=== PATIENT | male | born 1950 | race Caucasian/White ===

== ENCOUNTER 2020-11-04 14:48 | Inpatient (IN) ==
[2020-11-04 15:53] LABS: Hematocrit 33.4 % (37.5-50.1); Hemoglobin 10.9 g/dL (12.9-16.9); Immature Granulocytes % 0.2 % (0-4); Lymphocytes # 0.2 K/mcL (0.6-4.6); Lymphocytes % 3.7 %; Mean Corpuscular HGB Conc 32.6 g/dL (31.6-35.5); Mean Corpuscular Hemoglobin 32.6 pg (28.0-33.3); Mean Platelet Volume 10.6 fL (9.4-12.4); Monocytes # 0.2 K/mcL (0.0-1.3); Monocytes % 4.7 %; Neutrophils # 4.2 K/mcL (1.6-8.9); Platelet Count 107 K/mcL (140-400); Red Blood Count 3.34 M/mcL (4.19-5.50); Red Cell Distribution Width 12.9 % (11.5-14.5); Segmented Neutrophils % 91.4 %; White Blood Count 4.6 K/mcL (4.3-11.1)
[2020-11-04] MEDS ORDERED: Ondansetron 4 MG/2 ML VIAL IVP ONE (16:04)
[2020-11-04] MEDS ORDERED: 0.9 % Sodium Chloride 500 ML IV ONE (16:08)
[2020-11-04 16:23] LABS: Alanine Aminotransferase 54 Units/L (7-52); Albumin/Globulin Ratio 1.3 (1.1-2.2); Alkaline Phosphatase 56 Units/L (34-104); Aspartate Amino Transferase 52 Units/L (13-39); BUN/Creatinine Ratio 22 (6-26); Bilirubin,Total 1.1 mg/dL (0.3-1.0); Blood Urea Nitrogen 30 mg/dL (8-23); Calcium 9.2 mg/dL (8.6-10.3); Carbon Dioxide 26 mEq/L (23-29); Chloride 97 mEq/L (98-107); Globulin 3.1 g/dL (2.4-3.5); Glucose 119 mg/dL (70-105); Osmolality,Calculated 281 (280-300); Platelet Estimate Decreased (Normal); Potassium 3.7 mEq/L (3.5-5.1); Sodium 132 mEq/L (136-145); Total Protein 7.1 g/dL (6.4-8.9); Troponin I 0.07 ng/mL (< 0.04); eGFR For African Americans > 60 (> 60); eGFR For Non-African Americans 51 (> 60)
[2020-11-04 16:38] LABS: Amorphous Sediment,Urine Few per hpf (None-Few); Bacteria,Urine Few per hpf (None-Few); Bilirubin,Urine Negative (Negative); Blood,Urine Large (Negative); Clarity,Urine Turbid (Clear); Color,Urine Yellow (Yellow); Glucose,Urine (UA) Normal (Normal); Ketones,Urine Negative (Negative); Leukocyte Esterase,Urine Negative (Negative); Mucus,Urine Few per lpf (None-Few); Nitrite,Urine Negative (Negative); PH,Urine 6.5 pH Units (5.0-8.0); Protein,Urine 100 mg/dL (Neg-Trace); RBC,Urine TNTC per hpf (0-3); Squamous Epithelial Cell,Urine Few per hpf (None-Few); Urobilinogen,Urine Normal (Normal)
[2020-11-04 17:22] LABS: INR 1.4; Prothrombin Time 15.2 Seconds (9.4-12.1)
[2020-11-04 17:29] LABS: Influenza A PCR Negative (Negative); Influenza B PCR Negative (Negative); Resp. Syncytial Virus PCR Negative (Negative)
[2020-11-04 17:42] LABS: SARS-CoV-2 by PCR (In House) Positive (Negative)
[2020-11-04 20:44] LABS: C-Reactive Protein 187 mg/L (Less than 10)
[2020-11-04] MEDS ORDERED: Melatonin 3 MG TABLET PO PRN (22:20)
[2020-11-04] MEDS ORDERED: Naloxone 0.4 MG/ML INJ IVP PRN (22:20)
[2020-11-04] MEDS: *HR* OxyCODONE/APAP 7.5/325 TABLET GTUBE PRN (23:23)
[2020-11-04] MEDS: Ringers Solution, Lactated 1,000 ML IVC SCH (23:36)
[2020-11-05] MEDS ORDERED: Remdesivir 200 MG in 0.9 % Sodium Chloride 100 ML IVPB ONE (00:01)
[2020-11-05] MEDS: *HR* OxyCODONE/APAP 7.5/325 TABLET GTUBE PRN (05:00)
[2020-11-05] MEDS ORDERED: *HR* Enoxaparin 80 MG/0.8 ML SYRINGE SQ SCH (06:00)
[2020-11-05 07:02] LABS: Basophils % 0.3 %; Hematocrit 30.9 % (37.5-50.1); Immature Granulocytes % 0.5 % (0-4); Immature Platelets 3.7 % (1.1-6.1); Lymphocytes # 0.2 K/mcL (0.6-4.6); Lymphocytes % 5.9 %; Mean Corpuscular HGB Conc 32.4 g/dL (31.6-35.5); Mean Corpuscular Hemoglobin 32.7 pg (28.0-33.3); Mean Platelet Volume 10.3 fL (9.4-12.4); Monocytes # 0.2 K/mcL (0.0-1.3); Monocytes % 3.9 %; Neutrophils # 3.5 K/mcL (1.6-8.9); Red Blood Count 3.06 M/mcL (4.19-5.50); Segmented Neutrophils % 89.4 %; White Blood Count 3.9 K/mcL (4.3-11.1)
[2020-11-05 07:09] LABS: Platelet Count 97 K/mcL (140-400)
[2020-11-05 07:21] LABS: Albumin 3.4 g/dL (3.5-5.7); Albumin/Globulin Ratio 1.4 (1.1-2.2); Bilirubin,Direct 0.2 mg/dL (0.0-0.2); Bilirubin,Indirect 0.6 mg/dL (0.0-1.0); Bilirubin,Total 0.8 mg/dL (0.3-1.0); Globulin 2.5 g/dL (2.4-3.5); Total Protein 5.9 g/dL (6.4-8.9)
[2020-11-05 07:22] LABS: BUN/Creatinine Ratio 22 (6-26); Blood Urea Nitrogen 28 mg/dL (8-23); Calcium 8.7 mg/dL (8.6-10.3); Carbon Dioxide 26 mEq/L (23-29); Chloride 103 mEq/L (98-107); Glucose 110 mg/dL (70-105); Osmolality,Calculated 290 (280-300); Potassium 3.7 mEq/L (3.5-5.1); Sodium 137 mEq/L (136-145); eGFR For African Americans > 60 (> 60); eGFR For Non-African Americans 56 (> 60)
[2020-11-05] MEDS ORDERED: Famotidine 20 MG TABLET PO SCH (09:00)
[2020-11-05] MEDS: Aspirin Enteric Coated 81 MG Tablet PO SCH (09:09)
[2020-11-05] MEDS: Ampicillin/Sulbactam 3,000 MG in 0.9 % Sodium Chloride Mini Bag 100 ML IVPB SCH ×4 (09:10→23:41)
[2020-11-05] MEDS: Ringers Solution, Lactated 1,000 ML IVC SCH (09:10)
[2020-11-05] MEDS: Azithromycin 500 MG in 0.9 % Sodium Chloride 250 ML IVPB SCH (09:11)
[2020-11-06] MEDS: Remdesivir 100 MG in 0.9 % Sodium Chloride 100 ML IVPB SCH (00:41)
[2020-11-06 02:27] LABS: Hemoglobin 9.8 g/dL (12.9-16.9); Mean Corpuscular HGB Conc 33.8 g/dL (31.6-35.5); Mean Corpuscular Hemoglobin 33.4 pg (28.0-33.3); Mean Platelet Volume 10.3 fL (9.4-12.4); Red Blood Count 2.93 M/mcL (4.19-5.50); Red Cell Distribution Width 12.9 % (11.5-14.5); White Blood Count 5.2 K/mcL (4.3-11.1)
[2020-11-06 02:29] LABS: Platelet Count 91 K/mcL (140-400)
[2020-11-06 02:47] LABS: BUN/Creatinine Ratio 32 (6-26); Blood Urea Nitrogen 33 mg/dL (8-23); Calcium 8.5 mg/dL (8.6-10.3); Carbon Dioxide 26 mEq/L (23-29); Chloride 107 mEq/L (98-107); Glucose 118 mg/dL (70-105); Osmolality,Calculated 296 (280-300); Potassium 3.8 mEq/L (3.5-5.1); Sodium 139 mEq/L (136-145); eGFR For African Americans > 60 (> 60); eGFR For Non-African Americans > 60 (> 60)
[2020-11-06 02:49] LABS: Albumin/Globulin Ratio 1.2 (1.1-2.2); Bilirubin,Direct 0.2 mg/dL (0.0-0.2); Bilirubin,Indirect 0.6 mg/dL (0.0-1.0); Bilirubin,Total 0.8 mg/dL (0.3-1.0); Globulin 2.5 g/dL (2.4-3.5); Total Protein 5.5 g/dL (6.4-8.9)
[2020-11-06 02:55] LABS: Neutrophils # 4.2 K/mcL (1.6-8.9); Platelet Estimate Slight Decrease (Normal); Reactive Lymphocytes Present (Not Present)
[2020-11-06] MEDS: Ampicillin/Sulbactam 3,000 MG in 0.9 % Sodium Chloride Mini Bag 100 ML IVPB SCH ×3 (05:37→17:43)
[2020-11-06] MEDS: Aspirin Enteric Coated 81 MG Tablet PO SCH (10:02)
[2020-11-06] MEDS: *HR* Enoxaparin 40 MG/0.4 ML SYRINGE SQ SCH (10:05)
[2020-11-06] MEDS: Azithromycin 200 MG/5 ML UDC GTUBE SCH (10:29)
[2020-11-06] MEDS ORDERED: Perflutren Lipid Microsphere 1.3 ML in 0.9 % Sodium Chloride 8.7 ML IVP PRN (11:59)
[2020-11-07] MEDS: Ampicillin/Sulbactam 3,000 MG in 0.9 % Sodium Chloride Mini Bag 100 ML IVPB SCH ×4 (00:48→17:53)
[2020-11-07] MEDS: Remdesivir 100 MG in 0.9 % Sodium Chloride 100 ML IVPB SCH (01:25)
[2020-11-07 02:18] LABS: Mean Platelet Volume 10.5 fL (9.4-12.4); Red Cell Distribution Width 13.2 % (11.5-14.5)
[2020-11-07 02:20] LABS: Hematocrit 31.2 % (37.5-50.1); Immature Platelets 4.4 % (1.1-6.1); Lymphocytes # 0.2 K/mcL (0.6-4.6); Mean Corpuscular HGB Conc 32.1 g/dL (31.6-35.5); Mean Corpuscular Hemoglobin 32.4 pg (28.0-33.3); Red Blood Count 3.09 M/mcL (4.19-5.50); White Blood Count 5.5 K/mcL (4.3-11.1)
[2020-11-07 02:37] LABS: Albumin 3.1 g/dL (3.5-5.7); Albumin/Globulin Ratio 1.3 (1.1-2.2); Bilirubin,Direct 0.2 mg/dL (0.0-0.2); Bilirubin,Indirect 0.6 mg/dL (0.0-1.0); Bilirubin,Total 0.8 mg/dL (0.3-1.0); Globulin 2.4 g/dL (2.4-3.5); Total Protein 5.5 g/dL (6.4-8.9)
[2020-11-07 02:39] LABS: Platelet Count 93 K/mcL (140-400)
[2020-11-07 03:28] LABS: BUN/Creatinine Ratio 38 (6-26); Blood Urea Nitrogen 41 mg/dL (8-23); Calcium 9.3 mg/dL (8.6-10.3); Carbon Dioxide 24 mEq/L (23-29); Chloride 108 mEq/L (98-107); Glucose 118 mg/dL (70-105); Osmolality,Calculated 305 (280-300); Potassium 3.7 mEq/L (3.5-5.1); Sodium 142 mEq/L (136-145); eGFR For African Americans > 60 (> 60); eGFR For Non-African Americans > 60 (> 60)
[2020-11-07 04:28] LABS: Monocytes # 0.6 K/mcL (0.0-1.3); Neutrophils # 4.7 K/mcL (1.6-8.9); Reactive Lymphocytes Present (Not Present); Toxic Granulation Present (Not Present)
[2020-11-07 04:29] LABS: Platelet Estimate Decreased (Normal)
[2020-11-07] MEDS: *HR* Enoxaparin 40 MG/0.4 ML SYRINGE SQ SCH (09:38)
[2020-11-07] MEDS: Aspirin 81 MG TAB.CHEW PO SCH (09:38)
[2020-11-07] MEDS: Azithromycin 200 MG/5 ML UDC GTUBE SCH (10:13)
[2020-11-07 12:25] LABS: Hepatitis B Surface Antigen Nonreactive (Nonreactive)
[2020-11-07 12:26] LABS: Hepatitis C Virus Antibody Nonreactive (Nonreactive)
[2020-11-07 12:29] LABS: Hepatitis A Antibody IgM Nonreactive (Nonreactive)
[2020-11-07 12:53] LABS: Hepatitis B Core IgM Nonreactive (Nonreactive)
[2020-11-08] MEDS: Remdesivir 100 MG in 0.9 % Sodium Chloride 100 ML IVPB SCH (00:18)
[2020-11-08] MEDS: Ampicillin/Sulbactam 3,000 MG in 0.9 % Sodium Chloride Mini Bag 100 ML IVPB SCH ×5 (00:19→23:46)
[2020-11-08 07:22] LABS: Immature Granulocytes % 1.1 % (0-4); Mean Corpuscular Hemoglobin 32.2 pg (28.0-33.3); Red Cell Distribution Width 13.2 % (11.5-14.5)
[2020-11-08 07:24] LABS: Basophils % 0.2 %; Hematocrit 29.6 % (37.5-50.1); Hemoglobin 9.5 g/dL (12.9-16.9); Immature Platelets 4.6 % (1.1-6.1); Lymphocytes # 0.2 K/mcL (0.6-4.6); Lymphocytes % 3.4 %; Mean Corpuscular HGB Conc 32.1 g/dL (31.6-35.5); Mean Corpuscular Volume 100.3 fL (83.0-100.0); Mean Platelet Volume 10.7 fL (9.4-12.4); Monocytes # 0.4 K/mcL (0.0-1.3); Neutrophils # 5.8 K/mcL (1.6-8.9); Red Blood Count 2.95 M/mcL (4.19-5.50); Segmented Neutrophils % 89.3 %; White Blood Count 6.5 K/mcL (4.3-11.1)
[2020-11-08 07:26] LABS: Platelet Count 93 K/mcL (140-400)
[2020-11-08 07:43] LABS: Albumin 2.9 g/dL (3.5-5.7); Albumin/Globulin Ratio 1.2 (1.1-2.2); Bilirubin,Direct 0.2 mg/dL (0.0-0.2); Bilirubin,Indirect 0.7 mg/dL (0.0-1.0); Bilirubin,Total 0.9 mg/dL (0.3-1.0); Globulin 2.5 g/dL (2.4-3.5); Total Protein 5.4 g/dL (6.4-8.9)
[2020-11-08] MEDS: Aspirin 81 MG TAB.CHEW PO SCH (10:45)
[2020-11-08] MEDS: *HR* Enoxaparin 40 MG/0.4 ML SYRINGE SQ SCH (10:47)
[2020-11-08] MEDS: Azithromycin 200 MG/5 ML UDC GTUBE SCH (10:47)
[2020-11-08 11:27] LABS: BUN/Creatinine Ratio 40 (6-26); Blood Urea Nitrogen 43 mg/dL (8-23); Calcium 8.4 mg/dL (8.6-10.3); Carbon Dioxide 24 mEq/L (23-29); Chloride 112 mEq/L (98-107); Glucose 143 mg/dL (70-105); Osmolality,Calculated 315 (280-300); Potassium 3.5 mEq/L (3.5-5.1); Sodium 146 mEq/L (136-145); eGFR For African Americans > 60 (> 60); eGFR For Non-African Americans > 60 (> 60)
[2020-11-08] MEDS: Azithromycin 500 MG in 0.9 % Sodium Chloride 250 ML IVPB SCH (15:09)
[2020-11-09] MEDS: Remdesivir 100 MG in 0.9 % Sodium Chloride 100 ML IVPB SCH (00:46)
[2020-11-09 02:15] LABS: Hematocrit 31.1 % (37.5-50.1); Hemoglobin 10.1 g/dL (12.9-16.9); Immature Granulocytes % 1.4 % (0-4); Lymphocytes # 0.2 K/mcL (0.6-4.6); Lymphocytes % 2.7 %; Mean Corpuscular HGB Conc 32.5 g/dL (31.6-35.5); Mean Corpuscular Hemoglobin 32.7 pg (28.0-33.3); Mean Corpuscular Volume 100.6 fL (83.0-100.0); Mean Platelet Volume 10.5 fL (9.4-12.4); Monocytes # 0.3 K/mcL (0.0-1.3); Monocytes % 5.3 %; Neutrophils # 5.3 K/mcL (1.6-8.9); Platelet Count 100 K/mcL (140-400); Red Blood Count 3.09 M/mcL (4.19-5.50); Red Cell Distribution Width 13.2 % (11.5-14.5); Segmented Neutrophils % 90.6 %; White Blood Count 5.8 K/mcL (4.3-11.1)
[2020-11-09 02:33] LABS: BUN/Creatinine Ratio 43 (6-26); Blood Urea Nitrogen 43 mg/dL (8-23); Calcium 8.5 mg/dL (8.6-10.3); Carbon Dioxide 24 mEq/L (23-29); Chloride 112 mEq/L (98-107); Glucose 233 mg/dL (70-105); Osmolality,Calculated 320 (280-300); Potassium 3.6 mEq/L (3.5-5.1); Sodium 146 mEq/L (136-145); eGFR For African Americans > 60 (> 60); eGFR For Non-African Americans > 60 (> 60)
[2020-11-09 02:34] LABS: Albumin/Globulin Ratio 1.1 (1.1-2.2); Bilirubin,Direct 0.3 mg/dL (0.0-0.2); Bilirubin,Indirect 0.6 mg/dL (0.0-1.0); Bilirubin,Total 0.9 mg/dL (0.3-1.0); Globulin 2.7 g/dL (2.4-3.5); Total Protein 5.7 g/dL (6.4-8.9)
[2020-11-09] MEDS: Ampicillin/Sulbactam 3,000 MG in 0.9 % Sodium Chloride Mini Bag 100 ML IVPB SCH ×4 (04:48→23:10)
[2020-11-09] MEDS: Aspirin 81 MG TAB.CHEW PO SCH (10:12)
[2020-11-09] MEDS: *HR* Enoxaparin 40 MG/0.4 ML SYRINGE SQ SCH (10:14)
[2020-11-09] MEDS: Azithromycin 200 MG/5 ML UDC GTUBE SCH (10:14)
[2020-11-09] MEDS ORDERED: Furosemide 40 MG/4 ML VIAL IVP ONE (22:57)
[2020-11-09 23:24] LABS: ABG Base Excess -1 mEq/L (-2 to 3); ABG HCO3 24 mEq/L (21-27); ABG Oxygen Saturation 88 % (95-98); ABG PCO2 38 mmHg (35-45); ABG PH 7.41 pH Units (7.32-7.45); ABG PO2 55 mmHg (85-104); ABG TCO2 25 mEq/L (20-26)
[2020-11-10] MEDS: Ampicillin/Sulbactam 3,000 MG in 0.9 % Sodium Chloride Mini Bag 100 ML IVPB SCH ×3 (06:10→21:15)
[2020-11-10 08:36] LABS: Red Blood Count 3.26 M/mcL (4.19-5.50); Red Cell Distribution Width 13.1 % (11.5-14.5)
[2020-11-10 08:38] LABS: Hemoglobin 10.7 g/dL (12.9-16.9); Immature Platelets 5.8 % (1.1-6.1); Mean Corpuscular HGB Conc 33.4 g/dL (31.6-35.5); Mean Corpuscular Hemoglobin 32.8 pg (28.0-33.3); Mean Corpuscular Volume 98.2 fL (83.0-100.0); Mean Platelet Volume 10.6 fL (9.4-12.4); Platelet Count 138 K/mcL (140-400); White Blood Count 9.4 K/mcL (4.3-11.1)
[2020-11-10 09:40] LABS: Alanine Aminotransferase 203 Units/L (7-52); Albumin 2.9 g/dL (3.5-5.7); Albumin/Globulin Ratio 1.2 (1.1-2.2); Alkaline Phosphatase 50 Units/L (34-104); Aspartate Amino Transferase 98 Units/L (13-39); BUN/Creatinine Ratio 39 (6-26); Bilirubin,Total 0.9 mg/dL (0.3-1.0); Blood Urea Nitrogen 47 mg/dL (8-23); C-Reactive Protein 62 mg/L (Less than 10); Calcium 8.5 mg/dL (8.6-10.3); Carbon Dioxide 25 mEq/L (23-29); Chloride 113 mEq/L (98-107); Globulin 2.4 g/dL (2.4-3.5); Glucose 111 mg/dL (70-105); Osmolality,Calculated 319 (280-300); Potassium 2.6 mEq/L (3.5-5.1); Sodium 148 mEq/L (136-145); Total Protein 5.3 g/dL (6.4-8.9); eGFR For African Americans > 60 (> 60); eGFR For Non-African Americans > 60 (> 60)
[2020-11-10 10:15] LABS: Platelet Estimate Slight Decrease (Normal); Toxic Granulation Present (Not Present)
[2020-11-10] MEDS: *HR* Enoxaparin 40 MG/0.4 ML SYRINGE SQ SCH (10:47)
[2020-11-10] MEDS: Aspirin 81 MG TAB.CHEW PO SCH (10:48)
[2020-11-10 11:04] LABS: Lymphocytes # 0.2 K/mcL (0.6-4.6); Neutrophils # 8.5 K/mcL (1.6-8.9)
[2020-11-10] MEDS: Ipratropium/Albuterol Neb 3 ML IH SCH ×3 (16:51→23:34)
[2020-11-10] MEDS: Potassium Chloride Elixir 20 MEQ/15 ML UDC GTUBE SCH ×2 (21:16→21:42)
[2020-11-11] MEDS: Ampicillin/Sulbactam 3,000 MG in 0.9 % Sodium Chloride Mini Bag 100 ML IVPB SCH ×4 (01:53→18:58)
[2020-11-11] MEDS: Ipratropium/Albuterol Neb 3 ML IH SCH ×2 (04:16→08:46)
[2020-11-11 06:21] LABS: Hematocrit 30.5 % (37.5-50.1); Hemoglobin 9.9 g/dL (12.9-16.9); Mean Corpuscular HGB Conc 32.5 g/dL (31.6-35.5); Mean Corpuscular Hemoglobin 32.2 pg (28.0-33.3); Mean Corpuscular Volume 99.3 fL (83.0-100.0); Mean Platelet Volume 11.2 fL (9.4-12.4); Platelet Count 142 K/mcL (140-400); Red Blood Count 3.07 M/mcL (4.19-5.50); Red Cell Distribution Width 13.3 % (11.5-14.5); White Blood Count 11.5 K/mcL (4.3-11.1)
[2020-11-11 06:53] LABS: BUN/Creatinine Ratio 40 (6-26); Blood Urea Nitrogen 48 mg/dL (8-23); Calcium 8.9 mg/dL (8.6-10.3); Carbon Dioxide 26 mEq/L (23-29); Chloride 116 mEq/L (98-107); Glucose 153 mg/dL (70-105); Osmolality,Calculated 330 (280-300); Potassium 3.3 mEq/L (3.5-5.1); Sodium 152 mEq/L (136-145); eGFR For African Americans > 60 (> 60); eGFR For Non-African Americans 59 (> 60)
[2020-11-11 06:58] LABS: Lymphocytes # 0.5 K/mcL (0.6-4.6); Platelet Estimate Normal (Normal)
[2020-11-11] MEDS ORDERED: Isovue-370 500 ML BOTTLE IVP ONE (07:49)
[2020-11-11] MEDS: Aspirin 81 MG TAB.CHEW PO SCH (08:35)
[2020-11-11] MEDS: Potassium Chloride Elixir 20 MEQ/15 ML UDC GTUBE SCH ×2 (08:36→18:58)
[2020-11-11] MEDS: *HR* Enoxaparin 40 MG/0.4 ML SYRINGE SQ SCH (08:36)
[2020-11-11] MEDS ORDERED: *HR* Metoprolol 5 MG/5 ML VIAL IVP ONE ×2 (13:08→13:39)
[2020-11-11] MEDS ORDERED: *HR* Heparin 5,000 UNIT/ML VIAL IVP ONE (13:21)
[2020-11-11] MEDS ORDERED: *HR* Heparin 5,000 UNIT/ML VIAL IVP PRN ×2 (13:21)
[2020-11-11] MEDS ORDERED: Potassium Chloride 40 MEQ, Lidocaine 1% 2 ML in 0.9 % Sodium Chloride 500 ML IVPB ONE (13:27)
[2020-11-11] MEDS ORDERED: Metoprolol XL (24 HR) Succ 25 MG TAB.ER.24H PO SCH ×2 (13:45→16:00)
[2020-11-11] MEDS ORDERED: 0.9 % Sodium Chloride 250 ML IVC ONE (13:46)
[2020-11-11] MEDS ORDERED: DilTIAZem 50 MG/50 ML IV.SOLN IVC SCH (14:45)
[2020-11-11 15:37] LABS: Hematocrit 33.1 % (37.5-50.1); Hemoglobin 10.5 g/dL (12.9-16.9); Mean Corpuscular HGB Conc 31.7 g/dL (31.6-35.5); Mean Corpuscular Hemoglobin 32.8 pg (28.0-33.3); Mean Corpuscular Volume 103.4 fL (83.0-100.0); Mean Platelet Volume 11.6 fL (9.4-12.4); Platelet Count 149 K/mcL (140-400); Red Cell Distribution Width 13.3 % (11.5-14.5); White Blood Count 13.8 K/mcL (4.3-11.1)
[2020-11-11] MEDS: Heparin 25,000UNIT/250ML 1/2NS 25,000 UNIT/250 ML IV.SOLN IVC SCH (15:40)
[2020-11-11 16:19] LABS: Troponin I 0.04 ng/mL (< 0.04)
[2020-11-11 17:03] LABS: INR 1.6; Prothrombin Time 17.6 Seconds (9.4-12.1)
[2020-11-11 17:08] LABS: Heparin anti-factor XA UFH 1.7 IU/mL (0.30-0.70)
[2020-11-11 17:21] LABS: BUN/Creatinine Ratio 41 (6-26); Blood Urea Nitrogen 46 mg/dL (8-23); Calcium 8.9 mg/dL (8.6-10.3); Carbon Dioxide 21 mEq/L (23-29); Chloride 117 mEq/L (98-107); Glucose 170 mg/dL (70-105); Osmolality,Calculated 328 (280-300); Potassium 3.9 mEq/L (3.5-5.1); Sodium 151 mEq/L (136-145); eGFR For African Americans > 60 (> 60); eGFR For Non-African Americans > 60 (> 60)
[2020-11-11] MEDS: Levalbuterol 1 PUFF INHALER IH SCH (20:16)
[2020-11-11] MEDS: *HR* OxyCODONE/APAP 7.5/325 TABLET GTUBE PRN (21:26)
[2020-11-12] MEDS: Ampicillin/Sulbactam 3,000 MG in 0.9 % Sodium Chloride Mini Bag 100 ML IVPB SCH (00:06)
[2020-11-12] MEDS: Levalbuterol 1 PUFF INHALER IH SCH ×4 (03:20→20:25)
[2020-11-12 04:32] LABS: Basophils % 0.1 %; Hematocrit 27.7 % (37.5-50.1); Immature Granulocytes % 0.6 % (0-4); Lymphocytes # 0.1 K/mcL (0.6-4.6); Lymphocytes % 1.1 %; Mean Corpuscular HGB Conc 31.8 g/dL (31.6-35.5); Mean Corpuscular Hemoglobin 32.5 pg (28.0-33.3); Mean Corpuscular Volume 102.2 fL (83.0-100.0); Monocytes # 0.3 K/mcL (0.0-1.3); Monocytes % 2.7 %; Neutrophils # 11.5 K/mcL (1.6-8.9); Platelet Count 146 K/mcL (140-400); Red Blood Count 2.71 M/mcL (4.19-5.50); Red Cell Distribution Width 13.6 % (11.5-14.5); Segmented Neutrophils % 95.5 %
[2020-11-12 04:33] LABS: Hemoglobin 8.8 g/dL (12.9-16.9)
[2020-11-12 05:12] LABS: BUN/Creatinine Ratio 48 (6-26); Blood Urea Nitrogen 49 mg/dL (8-23); Calcium 8.8 mg/dL (8.6-10.3); Carbon Dioxide 25 mEq/L (23-29); Chloride 122 mEq/L (98-107); Glucose 146 mg/dL (70-105); Osmolality,Calculated 330 (280-300); Sodium 152 mEq/L (136-145); eGFR For African Americans > 60 (> 60); eGFR For Non-African Americans > 60 (> 60)
[2020-11-12 05:17] LABS: Troponin I 0.39 ng/mL (< 0.04)
[2020-11-12] MEDS: Potassium Chloride Elixir 20 MEQ/15 ML UDC GTUBE SCH ×2 (08:25→17:47)
[2020-11-12] MEDS: Aspirin 81 MG TAB.CHEW PO SCH (08:25)
[2020-11-12] MEDS: Ondansetron ODT 4 MG TAB.RAPDIS SL PRN ×2 (10:46→18:48)
[2020-11-12] MEDS: *HR* OxyCODONE/APAP 7.5/325 TABLET GTUBE PRN (10:46)
[2020-11-12] MEDS ORDERED: Apixaban 5 MG TABLET PO SCH (16:30)
[2020-11-12] MEDS: Heparin 25,000UNIT/250ML 1/2NS 25,000 UNIT/250 ML IV.SOLN IVC SCH (17:43)
[2020-11-12] MEDS: Apixaban 5 MG TABLET GTUBE SCH (17:47)
[2020-11-12 18:40] LABS: Amylase 54 Units/L (29-103); Lipase 66 Units/L (11-82)
[2020-11-13] MEDS: Levalbuterol 1 PUFF INHALER IH SCH ×2 (04:14→08:21)
[2020-11-13 07:32] VITALS: TEMP 98.1; O2SAT 93
[2020-11-13] MEDS: Aspirin 81 MG TAB.CHEW PO SCH (09:07)
[2020-11-13] MEDS: Apixaban 5 MG TABLET GTUBE SCH (09:55)
[2020-11-13] MEDS: Potassium Chloride Elixir 20 MEQ/15 ML UDC GTUBE SCH (09:55)
[2020-11-13 10:18] VITALS: BP 120/73; PULSE 82
== END 2020-11-13 12:14 | disposition home health service (06) | DRG 177 ==
LOC: 3ANU 14:48 → EMEROOARM 14:48 → 3ANU 20:05 → SUATTDRO 22:27 → 3NENU 11-11 22:15
PROVIDERS: ADMIT Internal Medicine; ATTEND Internal Medicine